=== PATIENT | female | born 1965 | race African-American/Black ===

== ENCOUNTER 2020-10-12 17:54 | Emergency (ER) | payer MEDICARE, MEDICAID ==
[~2020-10-12] VITALS: Ht 162.6 cm; Wt 84.0 kg
[2020-10-12] MEDS ORDERED: IBUPROFEN 600MG TABLET PO STA (19:11)
[2020-10-12 19:21] VITALS: BP 106/67
[2020-10-12 20:00] LABS: CHLORIDE 101 mEq/L (98-107)
[2020-10-12 20:10] LABS: BASOPHILS % 0.5 % (0.0-2.0); EOSINOPHILS % 0.5 % (0.0-5.0); HEMATOCRIT. 32.6 % (36.0-48.0); HEMOGLOBIN. 10.7 g/dL (12.0-16.0); LYMPHOCYTES % 37.6 % (20.0-50.0); MEAN CORPUSCULAR HEMOGLOBIN 26.1 pg (28.0-32.0); MEAN CORPUSCULAR VOLUME 79.2 fL (81.0-99.0); MEAN PLATELET VOLUME 8.1 fl (7.4-10.4); MONOCYTES % 5.8 % (2.0-8.0); NEUTROPHILS % 55.6 % (40.0-76.0); PLATELET 429 x1000/uL (130-400); RED BLOOD CELL COUNT 4.11 mill/uL (4.2-5.4); RED CELL DISTRIBUTION WIDTH 13.9 % (11.6-14.6)
== END 2020-10-12 21:01 | disposition home or self-care (01) ==
LOC: ER 17:54
DX: L03.311 Cellulitis of abdominal wall (principal); N73.9 Female pelvic inflammatory disease, unspecified; Z98.890 Other specified postprocedural states
CPT/HCPCS: 36415; 74176; 80053; 85025; 93005; 99285

== ENCOUNTER → 2021-07-21 | Day surgery (SDC) | payer MEDICARE, MEDICAID ==
[~2021-07-21] VITALS: Ht 160 cm; Wt 78.0 kg
[2021-07-21] VITALS (13 sets, daily range): BP systolic 126–142; BP diastolic 53–85
[~2021-07-21] MED LIST: FENTANYL CITRATE/PF 50MCG/ML 2ML VIAL IV ONE; FENTANYL CITRATE/PF 50MCG/ML 2ML VIAL ONE; HYDROCODONE/ACETAMINOPHEN 5/325MG TABLET PO PRN; LIDOCAINE HCL 1% 30ML VIAL (10MG/ML) ONE; SODIUM BICARBONATE 4% (2.4MEQ) 5ML VIAL IV ONE
[2021-07-21 15:25] LABS: HEMATOCRIT 34.3 % (36.0-48.0); HEMOGLOBIN 11.7 g/dL (12.0-16.0)
== END | disposition home or self-care (01) ==
LOC: RAD 07:52
PROVIDERS: ATTEND Internal Medicine Gastroenterology
DX: K74.69 Other cirrhosis of liver (principal); K75.81 Nonalcoholic steatohepatitis (NASH); Z79.899 Other long term (current) drug therapy; Z98.890 Other specified postprocedural states; Z20.822 Contact with and (suspected) exposure to COVID-19
CPT/HCPCS: 36415; 47000; 76942; 85014; 85018; 87426; 88307; J3010; J3490